=== PATIENT | male | born 1995 | race Hispanic/Latino ===

== ENCOUNTER 2019-05-17 02:08 | Emergency (ER) | payer SELFPAY | END 2019-05-17 02:25 | disposition home or self-care (01) | LOC: ERS 02:08 | DX: H61.23 Impacted cerumen, bilateral (principal) | CPT/HCPCS: 99282 ==

== ENCOUNTER 2019-07-03 19:38 | Emergency (ER) | payer OTHER, SELFPAY | END 2019-07-03 20:02 | disposition home or self-care (01) | LOC: ERS 19:38 | DX: R20.2 Paresthesia of skin (principal) | CPT/HCPCS: 99281 ==